=== PATIENT | male | born 1950 | race Caucasian/White ===

== ENCOUNTER → 2018-10-24 | Outpatient (CLI) | payer OTHER ==
--- NOTE | 2018-10-24 08:33 | REP ---
Clinical: Pneumonitis. Technique: PA and lateral views of the chest. Comparison: 03/30/2013. Findings: Mediastinum and cardiac silhouette are within normal limits and stable. Diffuse chronic interstitial changes and subtle bibasilar fibrosis again noted and essentially stable. No acute focal consolidation or effusion. No obvious pneumothorax. Skeletal structures intact. Impression: Stable chronic interstitial changes and basilar fibrosis suggested. No obvious acute process. Electronically Signed by Padilla Quach MD 10/24/2018 08:24 A
== END ==
LOC: M SMT 08:14
PROVIDERS: ATTEND Internal Medicine Pulmonary Disease
DX: J68.0 Bronchitis and pneumonitis due to chemicals, gases, fumes and vapors (principal)

== ENCOUNTER → 2022-02-05 | Outpatient (CLI) | payer OTHER ==
[~2022-02-05] MED LIST: ISOVUE-370 76% 25ML SYRINGE As Ordered ONE
== END ==
LOC: M RAD 16:22
PROVIDERS: ATTEND Internal Medicine Pulmonary Disease
DX: J68.0 Bronchitis and pneumonitis due to chemicals, gases, fumes and vapors (principal); R91.8 Other nonspecific abnormal finding of lung field
CPT/HCPCS: 71260; Q9967